=== PATIENT | female | born 1965 | race Caucasian/White ===

== ENCOUNTER 2024-06-08 02:15 | Emergency (ER) | payer BC ==
[2024-06-08 02:20] VITALS: RESP 18
--- NOTE | 2024-06-08 02:32 | ED ---
Upper Extremity HPI - General Chief Complaint: Extremity Injury, Upper Stated Complaint: Possible broken right hand Time Seen by Provider: 06/08/24 02:31 Source: patient, RN notes reviewed, old records reviewed Mode of arrival: ambulatory Limitations: no limitations - History of Present Illness Initial Comments: This is a 59 female to the ER today. This patient presents today for evaluation of severe hand pain patient fell on outstretched hand while walking her dog with severe pain in her fourth and fifth finger MD Complaint: Injury to:: right, hand, finger -: hour(s) Other Extremity Injury: Fingers: Right Other Injuries: none Handedness: right Place: home Severity scale (1-10): 10 Improves With: none Worsens With: none Context: fall, direct blow Associated Symptoms: denies other symptoms, heard/felt popping sensat - Related Data Allergies Allergy/AdvReac Type Severity Reaction Status Date / Time No Known Allergies Allergy Verified 06/08/24 02:20 Review of Systems ROS Statement: Those systems with pertinent positive or pertinent negative responses have been documented in the HPI. ROS Other: All systems not noted in ROS Statement are negative. Past Medical History Past Medical History: No Reported History Past Surgical History: No Surgical Hx Reported Past Psychological History: No Psychological Hx Reported Smoking Status: Never smoker Past Alcohol Use History: None Reported Past Drug Use History: Marijuana General Exam Limitations: no limitations General appearance: alert, in no apparent distress Head exam: Present: atraumatic, normocephalic, normal inspection Eye exam: Present: normal appearance, PERRL, EOMI. Absent: scleral icterus, conjunctival injection, periorbital swelling ENT exam: Present: normal exam, mucous membranes moist Neck exam: Present: normal inspection. Absent: tenderness, meningismus, lymphadenopathy Respiratory exam: Present: normal lung sounds bilaterally. Absent: respiratory distress, wheezes, rales, rhonchi, stridor Cardiovascular Exam: Present: regular rate, normal rhythm, normal heart sounds. Absent: systolic murmur, diastolic murmur, rubs, gallop, clicks GI/Abdominal exam: Present: soft, normal bowel sounds. Absent: distended, tenderness, guarding, rebound, rigid Extremities exam: Present: normal inspection, full ROM, normal capillary refill. Absent: tenderness, pedal edema, joint swelling, calf tenderness Back exam: Present: normal inspection Neurological exam: Present: alert, oriented X3, CN II-XII intact Psychiatric exam: Present: normal affect, normal mood Skin exam: Present: warm, dry, intact, normal color. Absent: rash Course Vital Signs 06/08/24 06/08/24 02:16 03:27 Temperature 97.5 F L 97.8 F Pulse Rate 90 88 Respiratory 18 18 Rate Blood Pressure 120/87 118/82 O2 Sat by Pulse 100 100 Oximetry - Reevaluation(s) Reevaluation #1: 06/08/24 02:48 Records reviewed Reevaluation #2: 06/08/24 02:48 This pain is improved Reevaluation #3: 06/08/24 02:48 Patient informed of results and questions answered Reevaluation #4: Was pt. sent in by a medical professional or institution (CLINTON Gaffney, MORTGAGE LOAN OFFICER ORIGINATOR, urgent care, hospital, or long-term...) When possible be specific @ -no Did you speak to anyone other than the patient for history (EMS, parent, family, police, friend...)? What history was obtained from this source @ -no Did you review nursing and triage notes (agree or disagree)? Why? @ -agree Are old charts reviewed (outside hosp., previous admission, EMS record, old EKG, old radiological studies, urgent care reports/EKG's, long-term records)? Report findings @ -yes Differential Diagnosis (chest pain, altered mental status, abdominal pain women, abdominal pain men, vaginal bleeding, weakness, fever, dyspnea, syncope, headache, dizziness, GI bleed, back pain, seizure, CVA, palpatations, mental health, musculoskeletal)? @ -prior EKG interpreted by me (3pts min.). @ -yes X-rays interpreted by me (1pt min.). @ -yes negative for acute disease CT interpreted by me (1pt min.). @ -no U/S interpreted by me (1pt. min.). @ -no What testing was considered but not performed or refused? (CT, X-rays, U/S, labs)? Why? @ -none What meds were considered but not given or refused? Why? @ -none Did you discuss the management of the patient with other professionals (professionals i.e. CLINTON Gaffney, MORTGAGE LOAN OFFICER ORIGINATOR, lab, RT, psych nurse, high school social science teacher, bioinformatics support specialist, teacher, principal gifts officer, complex case manager)? Give summary @ -no Was smoking cessation discussed for >3mins.? @ -no Was critical care preformed (if so, how long)? @ -no Were there social determinants of health that impacted care today? How? (Homelessness, low income, unemployed, alcoholism, drug addiction, transportation, low edu. Level, literacy, decrease access to med. care, [facility], rehab)? @ -none Was there de-escalation of care discussed even if they declined (Discuss DNR or withdrawal of care, Hospice)? DNR status @ -no What co-morbidities impacted this encounter? (DM, HTN, Smoking, COPD, CAD, Cancer, CVA, ARF, Chemo, Hep., AIDS, mental health diagnosis, sleep apnea, morbid obesity)? @ -none Was patient admitted / discharged? Hospital course, mention meds given and route, prescriptions, significant lab abnormalities, going to OR and other pertinent info. @ - Undiagnosed new problem with uncertain prognosis? @ -no Drug Therapy requiring intensive monitoring for toxicity (Heparin, Nitro, Insulin, Cardizem)? @ -no Were any procedures done? @ -no Diagnosis/symptom? @ - Acute, or Chronic, or Acute on Chronic? @ -Acute Uncomplicated (without systemic symptoms) or Complicated (systemic symptoms)? @ -Complicated Side effects of treatment? @ -no Exacerbation, Progression, or Severe Exacerbation? @ -exacerbation Poses a threat to life or bodily function? How? (Chest pain, [place], [place], pneumonia, PE, COPD, DKA, ARF, appy, cholecystitis, CVA, Diverticulitis, Homicidal, Suicidal, threat to staff... and all critical care pts) @ -yes Procedures - Orthopedic Fracture Reduction Fracture #1 Consent Obtained: verbal consent Side: right Fracture Reduction Location: finger (4th5th) Technique: direct manipulation Post Reduction X-rays Demonstrate: anatomical reduction Post-Reduction Neuro Exam: intact Post-Reduction Vascular Exam: intact Splint Applied: Yes Patient Tolerated Procedure: well Medical Decision Making - Medical Decision Making 59 Female with severe hand pain after a fall while walking her dog does have fourth and fifth digit fractures displaced patient placed in a splint here in the ER given pain control follow-up with orthopedics - Radiology Data Radiology results: report reviewed (X-ray of finger does show significant fracture with displacement), image reviewed Disposition Clinical Impression: Displaced fracture of phalanx of little finger, Displaced fracture of phalanx of ring finger, Fall Disposition: HOME SELF-CARE Condition: Fair Instructions (If sedation given, give patient instructions): Finger Fracture (ED), Hand Fracture (ED) Is patient prescribed a controlled substance at d/c from ED?: No Referrals: Oneal Buenrostro DO [Doctor of Osteopathic Medicine] - 1-2 days Time of Disposition: 03:30
[2024-06-08] MEDS: HYDROmorphone 1 MG/ML 1 ML SYRINGE IM STA (02:50)
[2024-06-08] MEDS: ACET/COD 300 MG/30 MG STARTER PACK 6 TAB BTL PO STA (03:20)
[2024-06-08] MEDS: traMADol 50 MG STARTER PACK 3 TAB BTL PO STA (03:20)
[2024-06-08 03:29] VITALS: BP 118/82; PULSE 88; TEMP 97.8
--- NOTE | 2024-06-08 07:42 | XR ---
EXAM: XR Right Hand Complete, 3 or More Views CLINICAL HISTORY: ITS.REASON XR Reason: pain TECHNIQUE: Frontal, lateral and oblique views of the right hand. COMPARISON: No relevant prior studies available. FINDINGS: Bones/joints: Transversely oriented fractures of the third, fourth and fifth proximal phalanges. Fractures of the third and fifth proximal phalanges involves the proximal metaphysis. Fracture of the fourth proximal phalanx involves the proximal metaphysis and epiphysis. Ulnar displacement of the fourth proximal phalanx shaft. Soft tissues: Soft tissue swelling at the sites of the fractures. No radiopaque foreign body. IMPRESSION: Fractures of the third, fourth and fifth proximal phalanges with displacement of the fourth proximal phalanx.
--- NOTE | 2024-06-08 08:02 | XR ---
EXAMINATION TYPE: XR wrist complete RT DATE OF EXAM: 06/08/2024 CLINICAL HISTORY: pain TECHNIQUE: Frontal, lateral and oblique images of the right wrist are obtained. Navicular views also submitted. COMPARISON: None. FINDINGS: There is no acute fracture/dislocation evident. The joint spaces appear within normal limits. The o verlying soft tissue appears unremarkable. IMPRESSION: There is no acute fracture or dislocation seen. ICD 10 NO FRACTURE, INITIAL EVALUATION
== END 2024-06-08 03:29 | disposition home or self-care (01) ==
LOC: EC 02:15
DX: S62.616A Displaced fracture of proximal phalanx of right little finger, initial encounter for closed fracture (principal); S62.624A Displaced fracture of middle phalanx of right ring finger, initial encounter for closed fracture; W18.39XA Other fall on same level, initial encounter; Y93.K1 Activity, walking an animal
CPT/HCPCS: 99283; 96372; 73110; 73130; 26725; J1170